=== PATIENT | male | born 1940 | race Hispanic/Latino ===

== ENCOUNTER 2017-09-16 10:10 | Emergency (ER) | payer OTHER ==
[~2017-09-16] VITALS: Ht 167.6 cm; Wt 74.8 kg
[~2017-09-16 10:10] MED LIST: ENALAPRIL PO; LISINOPRIL10 MG PO; METFORMIN PO; SIMVASTATIN PO
== END 2017-09-16 10:36 | disposition left against medical advice (07) ==
LOC: ER 10:10
DX: M79.652 Pain in left thigh (principal)

== ENCOUNTER 2018-08-20 08:08 | Emergency (ER) | payer OTHER ==
[~2018-08-20] VITALS: Ht 167.6 cm; Wt 74.8 kg
== END 2018-08-20 09:48 | disposition home or self-care (01) ==
LOC: ER 08:08
DX: L03.032 Cellulitis of left toe (principal); I10 Essential (primary) hypertension; E11.9 Type 2 diabetes mellitus without complications; E78.5 Hyperlipidemia, unspecified
CPT/HCPCS: 99283

== ENCOUNTER → 2019-03-25 | Day surgery (SDC) | payer MEDICARE ==
[2019-03-22 12:01] LABS: BASOPHILS # (AUTO) 0.1 (0.0-0.1); BASOPHILS % 0.8 % (0.0-1.0); EOSINOPHILS # (AUTO) 0.3 (0.0-0.4); EOSINOPHILS % 3.1 % (0.0-6.0); HEMATOCRIT 47.2 % (38.2-49.6); HEMOGLOBIN 15.4 g/dL (14.0-18.0); LYMPHOCYTES # (AUTO) 3.3 (1.0-3.2); MEAN CORPUSCULAR HGB CONC 32.6 g/dL (31-35); MEAN CORPUSCULAR VOLUME 95.2 fL (81-99); MONOCYTES % 10.9 % (4.4-11.3); NEUTROPHILS # (AUTO) 4.4 (2.1-6.9); NEUTROPHILS % 48.8 % (38.7-80.0); PLATELET COUNT 168 x10e3/uL (140-360); RED BLOOD COUNT 4.96 x10e6/uL (4.3-5.7); RED CELL DISTRIBUTION WIDTH 13.5 % (11.7-14.4)
[2019-03-22 12:26] LABS: ANION GAP 14.4 mmol/L (8-16); CALCIUM 9.8 mg/dL (8.4-10.2); CREATININE, SERUM 1.53 mg/dL (0.72-1.25); POTASSIUM 4.4 mmol/L (3.5-5.1)
--- NOTE | 2019-03-22 12:49 | Diagnostic Imaging Report ---
EXAMINATION: CHEST 2 VIEWS INDICATION: Pre-operative COMPARISON: None FINDINGS: LINES/TUBES:None LUNGS:The lungs are mildly hyperinflated. No focal consolidation or pulmonary edema. PLEURA:No pleural effusion or pneumothorax. MEDIASTINUM:The cardiomediastinal silhouette appears normal in size and shape. BONES/SOFT TISSUES:No acute osseous injury. ABDOMEN:No free air under the diaphragm. IMPRESSION: No focal pneumonia or pulmonary edema. Signed by: Araceli Osborne MD on 03/22/2019 12:46 PM
[~2019-03-25] MED LIST changes: +ACETAMINOPHEN 1000 MG/100 ML 100 ML IV ONE; +BACITRACIN 50,000 UNIT VIAL ONE; +BUPIVACAINE HCL 0.5% INJ 30 ML VIAL INJ ONE; +CEFAZOLIN SOD 1 GM/NS 50ML 100 ML IV ONE; +DEXAMETHASONE SOD PHOS INJ 4 MG/ML VIAL ONE; +FENTANYL CITRATE/PF 100MCG/2 ML INJ ONE; +GLYCOPYRROLATE INJ 1MG/ 5 ML SYR ONE; +LIDOCAINE HCL 2% LOCAL INJ 5 ML SDV VIAL INJ ONE; +NEOSTIGMINE 1 MG/ML 10ML VIAL ONE; +PROPOFOL IV EMULSION 10 MG/ML 20 ML VIAL ONE; +SEVOFLURANE INHAL SOLN 250 ML PEN BTL ONE
--- OUTSIDE RECORDS SUMMARY | 2019-03-25 06:47 | XMS REPORT ---
[facility] Phone Unavailable Care Team Providers Care Manager Respiratory Care Name Role Phone JENNIFER ALLISON Unavailable Unavailable Problems This patient has no known problems. Allergies, Adverse Reactions, Alerts This patient has no known allergies or adverse reactions. Medications This patient has no known medications. Results Test Description Test Time Test Comments Text Results Atomic Results Result Comments CHEST 2 VIEWS 2019-03-22 12:45:00 [facility] [address] [place] [address] Patient Name: DIANE GUDINO MR #: [id number] : 1940 Age/Sex: 79/M Req #: [id number] [facility] Physician: Ordered by: JENNIFER ALLISON DPM Report #: [id number] Location: OR Room/Bed: Procedure: [id number] DX/CHEST 2 VIEWS Exam Date: 03/22/19 Exam Time: 1215 REPORT STATUS: Signed EXAMINATION: CHEST 2 VIEWS INDICATION: Pre-operative COMPARISON: None FINDINGS: LINES/TUBES:None LUNGS:The lungs are mildly hyperinflated. No focal consolidation or pulmonary edema. PLEURA:No pleural effusion or pneumothorax. MEDIASTINUM:The cardiomediastinal silhouette appears normal in size and shape. BONES/SOFT TISSUES:No acute osseous injury. ABDOMEN:No free air under the diaphragm. IMPRESSION: No focal pneumonia or pulmonary edema. Signed by: Ranjeet Osborne MD on 03/22/2019 12:46 PM Dictated By: RANJEET OSBORNE MD [id number] Transcribed By: NASH on 03/22/19 1246 COPY TO: JENNIFER ALLISON DPM
[2019-03-25 11:05] VITALS: BP 127/81
--- NOTE | 2019-03-25 21:53 | Operative Report ---
DATE OF PROCEDURE: SURGEON: Walt Cobos DPM ROOM NUMBER: [facility]. PREOPERATIVE DIAGNOSIS: 1. 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 2. Chronic ulceration/soft tissue mass, third interspace, left foot. NAME OF OPERATIONS: 1. Arthroplasty of the 4th digit of the left foot. 2. Excision of the mass with debridement of the chronic ulceration, 3rd intermetatarsal space of the left foot. PROCEDURE IN DETAIL: The patient was taken to the operating room in a mildly sedated state, placed on the operating table in supine position. Following induction of general anesthetic, the left lower extremity was elevated to 60 degrees to exsanguinate for inflating the pneumatic ankle tourniquet to 350 mmHg to create good hemostasis. Left lower extremity was placed on the operating table prior to performing the following procedure. Procedure #1: Arthroplasty of the 4th digit of the left foot. A linear longitudinal incision was made overlying the dorsal aspect of the proximal interphalangeal joint of the left foot. Incision was deepened via sharp and blunt dissection and head of the proximal phalanx having the surgical site remodeled. Utilizing an oscillating saw, the area was irrigated with copious amounts of sterile saline solution. Deep closure was 3-0 Vicryl. Skin closure was 4-0 nylon. The interdigital lesion was then evaluated in the 3rd intermetatarsal space. This was noted to be full thickness through skin and subcutaneous tissue, primarily located along the medial aspect of the 4th digit, but extending also onto the lateral aspect of the 3rd digit. Utilizing sharp debridement, the entirety of the lesion was resected, this left a full-thickness void. The area was irrigated with copious amounts of sterile saline solution. An application of human tissue allograft was applied to the wound for wound closure. That area was then dressed with appropriate mildly compressive dressings. The release of pneumatic thigh tourniquet showed a normal hyperemic flush to all digits of left foot. The patient left the operating room with vital signs stable in apparent satisfactory condition. The excision of the lesion and the arthroplasty were performed separately through separate incisions and the application of grafting product overlying the 3rd intermetatarsal space was done utilizing standard technique for wound closure. This having been accomplished and the appropriate mildly compressive dressings were applied. The patient left the operating room and will return to see me within 1 week postoperatively. GUIDO Anderson /[id number]
== END | disposition home or self-care (01) ==
LOC: OR 06:44
PROVIDERS: ATTEND Podiatrist Foot Surgery
DX: M20.42 Other hammer toe(s) (acquired), left foot (principal); L89.891 Pressure ulcer of other site, stage 1; M79.672 Pain in left foot; Z01.810 Encounter for preprocedural cardiovascular examination; Z01.812 Encounter for preprocedural laboratory examination; Z01.811 Encounter for preprocedural respiratory examination; E11.9 Type 2 diabetes mellitus without complications; I10 Essential (primary) hypertension; B07.8 Other viral warts; Z79.84 Long term (current) use of oral hypoglycemic drugs
CPT/HCPCS: 11422; 28285; 36415 ×2; 71046; 76000; 80048; 82948; 85025; 88305; 93005; J0131; J0690; J1100; J2001; J2704; J2710; J3010; J3490; Q4100; 88304

== ENCOUNTER → 2020-05-17 | Outpatient (CLI) | payer OTHER ==
[~2020-05-17] MED LIST changes: -ACETAMINOPHEN 1000 MG/100 ML 100 ML IV ONE; -BACITRACIN 50,000 UNIT VIAL ONE; -BUPIVACAINE HCL 0.5% INJ 30 ML VIAL INJ ONE; -CEFAZOLIN SOD 1 GM/NS 50ML 100 ML IV ONE; +COVID-19 VACC, MRNA(MODERNA)/PF 100 MCG/0.5 ML VIAL IM ONE; -DEXAMETHASONE SOD PHOS INJ 4 MG/ML VIAL ONE; -FENTANYL CITRATE/PF 100MCG/2 ML INJ ONE; -GLYCOPYRROLATE INJ 1MG/ 5 ML SYR ONE; -LIDOCAINE HCL 2% LOCAL INJ 5 ML SDV VIAL INJ ONE; -NEOSTIGMINE 1 MG/ML 10ML VIAL ONE; -PROPOFOL IV EMULSION 10 MG/ML 20 ML VIAL ONE; -SEVOFLURANE INHAL SOLN 250 ML PEN BTL ONE
== END ==
LOC: VACCPMC 06:30
DX: Z23 Encounter for immunization (principal); Z20.828 Contact with and (suspected) exposure to other viral communicable diseases

== ENCOUNTER → 2020-06-22 | Outpatient (CLI) | payer OTHER | END | DRG 951 | LOC: VACCPMC 11:01 | DX: Z23 Encounter for immunization (principal); Z20.822 Contact with and (suspected) exposure to COVID-19 | CPT/HCPCS: 0012A; 91301 ==

== ENCOUNTER → 2021-01-16 | Day surgery (SDC) | payer MEDICARE ==
[2021-01-14 10:51] LABS: BASOPHILS # (AUTO) 0.1 (0.0-0.1); EOSINOPHILS # (AUTO) 0.2 (0.0-0.4); EOSINOPHILS % 2.3 % (0.0-6.0); HEMATOCRIT 45.1 % (38.2-49.6); HEMOGLOBIN 14.3 g/dL (14.0-18.0); LYMPHOCYTES % 23.7 % (18.0-39.1); MEAN CORPUSCULAR HEMOGLOBIN 30.5 pg (28-32); MEAN CORPUSCULAR HGB CONC 31.7 g/dL (31-35); MEAN CORPUSCULAR VOLUME 96.2 fL (81-99); MONOCYTES # (AUTO) 0.6 (0.2-0.8); MONOCYTES % 7.6 % (4.4-11.3); NEUTROPHILS # (AUTO) 5.4 (2.1-6.9); NEUTROPHILS % 64.9 % (38.7-80.0); PLATELET COUNT 184 x10e3/uL (140-360); RED BLOOD COUNT 4.69 x10e6/uL (4.3-5.7); RED CELL DISTRIBUTION WIDTH 14.3 % (11.7-14.4)
[2021-01-14 11:03] LABS: INR 0.94; PARTIAL THROMBOPLASTIN TIME 28.5 seconds (23.8-35.5); PROTHROMBIN TIME 12.8 seconds (11.9-14.5)
[2021-01-14 11:56] LABS: ALBUMIN 3.9 g/dL (3.5-5.0); ALBUMIN/GLOBULIN RATIO 1.1 (0.8-2.0); ANION GAP 14.9 mmol/L (8-16); CALCIUM 9.7 mg/dL (8.4-10.2); CREATININE, SERUM 1.32 mg/dL (0.72-1.25); POTASSIUM 4.9 mmol/L (3.5-5.1)
[~2021-01-16] VITALS: Ht 170.2 cm; Wt 68.0 kg
[2021-01-16] VITALS (7 sets, daily range): BP systolic 119–165; BP diastolic 62–76
[~2021-01-16] MED LIST changes: +AMLODIPINE BESYL5 MG PO; +ATORVASTATIN CA20 MG PO; -COVID-19 VACC, MRNA(MODERNA)/PF 100 MCG/0.5 ML VIAL IM ONE; +FENTANYL CITRATE/PF 100MCG/2 ML INJ ONE; +HEPARIN SOD/SOD CHLORIDE 2,000 ML ONE; +IOPAMIDOL 370 MG/ML 200 ML INFUS..BTL INJ ONE; +LIDOCAINE HCL 2% LOCAL 20 ML VIAL ONE; +MIDAZOLAM HCL 2 MG/2 ML VIAL ONE; +SODIUM CHLORIDE 0.9% 1000ML 1,000 ML ONE
== END | disposition home or self-care (01) ==
LOC: CATH LAB 07:53
PROVIDERS: ATTEND Internal Medicine Cardiovascular Disease
DX: I25.10 Atherosclerotic heart disease of native coronary artery without angina pectoris (principal); R94.39 Abnormal result of other cardiovascular function study; R94.31 Abnormal electrocardiogram [ECG] [EKG]; I10 Essential (primary) hypertension; I49.3 Ventricular premature depolarization; E78.5 Hyperlipidemia, unspecified; E11.9 Type 2 diabetes mellitus without complications; Z01.812 Encounter for preprocedural laboratory examination; Z20.822 Contact with and (suspected) exposure to COVID-19; Z79.82 Long term (current) use of aspirin; Z79.84 Long term (current) use of oral hypoglycemic drugs; Z82.49 Family history of ischemic heart disease and other diseases of the circulatory system
CPT/HCPCS: 36415; 76937; 80053; 80061; 85025; 85610; 85730; 93458; C1887; J2001; J2250; J3010; J7030; Q9967; U0002; 99152

== ENCOUNTER 2022-09-20 16:06 | Inpatient (IN) | payer MEDICARE ==
[~2022-09-20] VITALS: Ht 170.2 cm; Wt 68.0 kg
[~2022-09-20 16:06] MED LIST changes: -FENTANYL CITRATE/PF 100MCG/2 ML INJ ONE; -HEPARIN SOD/SOD CHLORIDE 2,000 ML ONE; -IOPAMIDOL 370 MG/ML 200 ML INFUS..BTL INJ ONE; -LIDOCAINE HCL 2% LOCAL 20 ML VIAL ONE; -MIDAZOLAM HCL 2 MG/2 ML VIAL ONE; -SODIUM CHLORIDE 0.9% 1000ML 1,000 ML ONE
[2022-09-20] MEDS ORDERED: CLINDAMYCIN 600MG / 50ML 50 ML IV STA (16:28)
[2022-09-20 16:42] LABS: BASOPHILS # (AUTO) 0.1 (0.0-0.1); BASOPHILS % 0.4 % (0.0-1.0); EOSINOPHILS % 0.2 % (0.0-6.0); HEMATOCRIT 45.6 % (38.2-49.6); HEMOGLOBIN 15.1 g/dL (14.0-18.0); LYMPHOCYTES # (AUTO) 1.9 (1.0-3.2); LYMPHOCYTES % 12.7 % (18.0-39.1); MEAN CORPUSCULAR HEMOGLOBIN 30.6 pg (28-32); MEAN CORPUSCULAR HGB CONC 33.1 g/dL (31-35); MEAN CORPUSCULAR VOLUME 92.3 fL (81-99); MONOCYTES # (AUTO) 2.6 (0.2-0.8); MONOCYTES % 17.5 % (4.4-11.3); NEUTROPHILS # (AUTO) 10.3 (2.1-6.9); NEUTROPHILS % 68.7 % (38.7-80.0); PLATELET COUNT 180 x10e3/uL (140-360); RED BLOOD COUNT 4.94 x10e6/uL (4.3-5.7); RED CELL DISTRIBUTION WIDTH 14.5 % (11.7-14.4)
[2022-09-20 16:50] LABS: INR 1.08; PARTIAL THROMBOPLASTIN TIME 31.6 seconds (23.8-35.5); PROTHROMBIN TIME 14.5 seconds (11.9-14.5)
[2022-09-20 16:59] LABS: ALBUMIN 3.6 g/dL (3.5-5.0); ALBUMIN/GLOBULIN RATIO 0.9 (0.8-2.0); ANION GAP 16.1 mmol/L (8-16); CALCIUM 9.5 mg/dL (8.4-10.2); CREATININE, SERUM 1.44 mg/dL (0.72-1.25); POTASSIUM 4.1 mmol/L (3.5-5.1)
[2022-09-20] MEDS ORDERED: Vancomycin IV 1 GM in SODIUM CHLORIDE 0.9% 250ML 250 ML IV STA (17:54)
[2022-09-20] MEDS ORDERED: SODIUM CHLORIDE FLUSH 10 ML SYR INJ PRN (18:00)
[2022-09-20] MEDS ORDERED: ONDANSETRON HCL INJ 2MG/ML 2ML 2 MG/ML VIAL IV PRN (18:00)
[2022-09-20 20:00] VITALS: BP_SYST 122; BP_DIAS 65; BP_DIAS 68; PULSE 70; RESP 19; TEMP 98.2; O2SAT 100; O2SAT 97
[2022-09-20] MEDS ORDERED: DEXTROSE 50% SYRINGE 50 ML IV PRN (20:45)
[2022-09-20] MEDS ORDERED: HYDRALAZINE HCL 20 MG/ML VIAL IV PRN (20:45)
[2022-09-20] MEDS ORDERED: DOCUSATE SODIUM 100 MG CAP PO PRN (20:45)
[2022-09-20] MEDS ORDERED: GUAIFENESIN/DEXTROMETHORPHAN LIQD 5 ML UDC PO PRN (20:45)
[2022-09-20] MEDS ORDERED: ACETAMINOPHEN 325 MG TAB PO PRN (20:45)
[2022-09-20] MEDS ORDERED: MAGNESIUM/ALUMINUM/SIMETHICONE 30 ML UDC PO PRN (20:45)
[2022-09-20] MEDS: ATORVASTATIN 20 MG TAB PO SCH (22:38)
[2022-09-20] MEDS: INSULIN REGULAR, HUMAN 100 UNIT/1 ML SQ SCH (22:42)
[2022-09-21] VITALS (8 sets, daily range): BP systolic 107–131; BP diastolic 46–71; PULSE 66–70; RESP 17–21; TEMP 97.8–99.4; O2SAT 99–100
[2022-09-21] MEDS ORDERED: SODIUM CHLORIDE 0.9% 250ML 250 ML ONE (00:47)
[2022-09-21] MEDS ORDERED: QUETIAPINE FUMA25 MG PO (01:07)
[2022-09-21] MEDS ORDERED: NAMENDA10 MG PO (01:08)
[2022-09-21 06:15] LABS: BASOPHILS # (AUTO) 0.1 (0.0-0.1); BASOPHILS % 0.4 % (0.0-1.0); EOSINOPHILS # (AUTO) 0.1 (0.0-0.4); EOSINOPHILS % 0.4 % (0.0-6.0); HEMATOCRIT 40.5 % (38.2-49.6); LYMPHOCYTES # (AUTO) 2.7 (1.0-3.2); LYMPHOCYTES % 23.5 % (18.0-39.1); MEAN CORPUSCULAR HEMOGLOBIN 30.2 pg (28-32); MEAN CORPUSCULAR HGB CONC 32.1 g/dL (31-35); MEAN CORPUSCULAR VOLUME 94.2 fL (81-99); MONOCYTES # (AUTO) 1.6 (0.2-0.8); MONOCYTES % 13.7 % (4.4-11.3); NEUTROPHILS % 61.6 % (38.7-80.0); PLATELET COUNT 166 x10e3/uL (140-360); RED CELL DISTRIBUTION WIDTH 14.6 % (11.7-14.4)
[2022-09-21 06:38] LABS: ALBUMIN/GLOBULIN RATIO 0.9 (0.8-2.0); ANION GAP 12.9 mmol/L (8-16); CALCIUM 9.1 mg/dL (8.4-10.2); CREATININE, SERUM 1.55 mg/dL (0.72-1.25); POTASSIUM 3.9 mmol/L (3.5-5.1)
[2022-09-21 06:58] LABS: THYROID STIMULATING HORMONE 3.203 uIU/mL (0.350-4.940)
[2022-09-21] MEDS: INSULIN REGULAR, HUMAN 100 UNIT/1 ML SQ SCH ×4 (07:30→21:00)
[2022-09-21] MEDS: MULTIVITAMINS/MINERALS TAB PO SCH (09:00)
[2022-09-21] MEDS: AMLODIPINE BESYLATE 5 MG TAB PO SCH (09:00)
[2022-09-21] MEDS: ENOXAPARIN SOD INJ 40 MG/0.4 ML SYR SC SCH (16:48)
[2022-09-21] MEDS ORDERED: Vancomycin IV 1 GM in SODIUM CHLORIDE 0.9% 250ML 250 ML IV SCH (17:00)
[2022-09-21] MEDS ORDERED: VANCOMYCIN 1.25GM/250ML PREMIX 250 ML IV SCH (17:00)
[2022-09-21] MEDS ORDERED: LEVALBUTEROL HCL SOLN NEBU 0.63 MG/3 ML NEB INH SCH (19:00)
[2022-09-21] MEDS: ATORVASTATIN 20 MG TAB PO SCH (22:03)
[2022-09-21] MEDS: MELATONIN 3 MG TAB PO PRN (22:14)
[2022-09-21] MEDS: Morphine 2mg Syringe 2 MG/ML SYR IV PRN (23:52)
[2022-09-22] VITALS (8 sets, daily range): BP systolic 108–150; BP diastolic 65–80; PULSE 58–91; RESP 16–18; TEMP 97.7–98.6; O2SAT 97–100
[2022-09-22 05:41] LABS: BASOPHILS # (AUTO) 0.1 (0.0-0.1); BASOPHILS % 0.6 % (0.0-1.0); EOSINOPHILS # (AUTO) 0.1 (0.0-0.4); EOSINOPHILS % 1.5 % (0.0-6.0); HEMATOCRIT 38.5 % (38.2-49.6); HEMOGLOBIN 12.7 g/dL (14.0-18.0); LYMPHOCYTES # (AUTO) 2.3 (1.0-3.2); LYMPHOCYTES % 27.6 % (18.0-39.1); MEAN CORPUSCULAR HEMOGLOBIN 30.8 pg (28-32); MEAN CORPUSCULAR VOLUME 93.4 fL (81-99); MONOCYTES % 12.2 % (4.4-11.3); NEUTROPHILS # (AUTO) 4.8 (2.1-6.9); NEUTROPHILS % 57.4 % (38.7-80.0); PLATELET COUNT 155 x10e3/uL (140-360); RED BLOOD COUNT 4.12 x10e6/uL (4.3-5.7)
[2022-09-22 06:07] LABS: CALCIUM 8.7 mg/dL (8.4-10.2); CREATININE, SERUM 1.73 mg/dL (0.72-1.25)
[2022-09-22] MEDS: INSULIN REGULAR, HUMAN 100 UNIT/1 ML SQ SCH ×4 (07:30→21:00)
[2022-09-22] MEDS: AMLODIPINE BESYLATE 5 MG TAB PO SCH (09:37)
[2022-09-22] MEDS: MULTIVITAMINS/MINERALS TAB PO SCH (09:37)
[2022-09-22] MEDS: Morphine 2mg Syringe 2 MG/ML SYR IV PRN ×2 (09:45→22:21)
[2022-09-22] MEDS ORDERED: ONDANSETRON HCL 4 MG ORAL DISINTEGRATING TAB PO PRN (13:00)
[2022-09-22] MEDS: LACTATED RINGER'S 1,000 ML INJ SCH (13:09)
[2022-09-22] MEDS: ENOXAPARIN SOD INJ 40 MG/0.4 ML SYR SC SCH (17:42)
[2022-09-22] MEDS: ATORVASTATIN 20 MG TAB PO SCH (21:57)
[2022-09-22] MEDS: METHYLPREDNISOLONE SOD SUCC 40 MG/ML VIAL 1ML IV SCH (21:57)
[2022-09-22] MEDS: MELATONIN 3 MG TAB PO PRN (22:21)
[2022-09-23] VITALS (7 sets, daily range): BP systolic 136–175; BP diastolic 59–79; PULSE 65–71; RESP 16–18; TEMP 97.3–98.5; O2SAT 97–100
[2022-09-23] MEDS: LACTATED RINGER'S 1,000 ML INJ SCH ×2 (04:52→14:40)
[2022-09-23 04:58] LABS: HEMATOCRIT 41.1 % (38.2-49.6); HEMOGLOBIN 13.3 g/dL (14.0-18.0); MEAN CORPUSCULAR HEMOGLOBIN 30.5 pg (28-32); MEAN CORPUSCULAR HGB CONC 32.4 g/dL (31-35); MEAN CORPUSCULAR VOLUME 94.3 fL (81-99); PLATELET COUNT 188 x10e3/uL (140-360); RED BLOOD COUNT 4.36 x10e6/uL (4.3-5.7); RED CELL DISTRIBUTION WIDTH 14.6 % (11.7-14.4)
[2022-09-23 05:35] LABS: ANION GAP 15.5 mmol/L (8-16); CALCIUM 8.9 mg/dL (8.4-10.2); CREATININE, SERUM 1.78 mg/dL (0.72-1.25); POTASSIUM 4.5 mmol/L (3.5-5.1)
[2022-09-23] MEDS: INSULIN REGULAR, HUMAN 100 UNIT/1 ML SQ SCH ×4 (07:30→21:32)
[2022-09-23] MEDS: MULTIVITAMINS/MINERALS TAB PO SCH (08:55)
[2022-09-23] MEDS: CEFTRIAXONE 2 GM in SODIUM CHLORIDE 0.9% 100 ML IV SCH (08:56)
[2022-09-23] MEDS: AMLODIPINE BESYLATE 5 MG TAB PO SCH (08:56)
[2022-09-23] MEDS: METHYLPREDNISOLONE SOD SUCC 40 MG/ML VIAL 1ML IV SCH ×2 (09:06→21:28)
[2022-09-23 09:34] LABS: LYMPHOCYTES % (MANUAL) 6 % (19-48); MONOCYTES % (MANUAL) 2 % (3.4-9.0); NEUTROPHILS % (MANUAL) 92 % (40-74)
[2022-09-23 09:35] LABS: PLATELET ESTIMATE ADEQUATE; PLATELET MORPHOLOGY COMMENT NORMAL; RBC MORPHOLOGY COMMENT NORMAL
[2022-09-23] MEDS: ENOXAPARIN SOD INJ 40 MG/0.4 ML SYR SC SCH (17:51)
[2022-09-23] MEDS: ATORVASTATIN 20 MG TAB PO SCH (21:25)
[2022-09-23] MEDS: MELATONIN 3 MG TAB PO PRN (21:35)
[2022-09-24 00:10] VITALS: BP 155/76; PULSE 64; RESP 18; TEMP 97.5; O2SAT 100
[2022-09-24 04:00] VITALS: BP 145/66; PULSE 76; RESP 17; TEMP 97.7; O2SAT 100
[2022-09-24 05:16] LABS: ANION GAP 13.1 mmol/L (8-16); CALCIUM 8.9 mg/dL (8.4-10.2); CREATININE, SERUM 1.34 mg/dL (0.72-1.25); POTASSIUM 4.1 mmol/L (3.5-5.1)
[2022-09-24] MEDS: LACTATED RINGER'S 1,000 ML INJ SCH (05:53)
[2022-09-24 08:21] VITALS: BP 146/97; PULSE 63; RESP 19; TEMP 97.6; O2SAT 100
[2022-09-24] MEDS: CEFTRIAXONE 2 GM in SODIUM CHLORIDE 0.9% 100 ML IV SCH (08:42)
[2022-09-24] MEDS: MULTIVITAMINS/MINERALS TAB PO SCH (08:42)
[2022-09-24] MEDS: AMLODIPINE BESYLATE 5 MG TAB PO SCH (08:43)
[2022-09-24 08:50] VITALS: BP 146/97; PULSE 63; RESP 19; TEMP 97.6; O2SAT 100
[2022-09-24] MEDS: METHYLPREDNISOLONE SOD SUCC 40 MG/ML VIAL 1ML IV SCH (09:00)
[2022-09-24] MEDS: INSULIN REGULAR, HUMAN 100 UNIT/1 ML SQ SCH (09:01)
[2022-09-24] MEDS ORDERED: DOXYCYCLINE MO100 MG PO (10:44)
[2022-09-24] MEDS ORDERED: LEVOFLOXACIN500 MG PO (10:44)
== END 2022-09-24 13:13 | disposition home or self-care (01) | DRG 603 ==
LOC: ER 16:20 → ERHOLD 17:54 → MED/SURG2 21:40 → OBSVTOIN 09-22 15:52
PROVIDERS: ADMIT Internal Medicine Critical Care Medicine; ATTEND Internal Medicine Critical Care Medicine
DX: L03.115 Cellulitis of right lower limb (principal); N17.9 Acute kidney failure, unspecified; E11.628 Type 2 diabetes mellitus with other skin complications; E78.5 Hyperlipidemia, unspecified; F17.210 Nicotine dependence, cigarettes, uncomplicated; E11.40 Type 2 diabetes mellitus with diabetic neuropathy, unspecified; M10.9 Gout, unspecified; M19.90 Unspecified osteoarthritis, unspecified site; S93.491A Sprain of other ligament of right ankle, initial encounter; M65.861 Other synovitis and tenosynovitis, right lower leg; E11.22 Type 2 diabetes mellitus with diabetic chronic kidney disease; I12.9 Hypertensive chronic kidney disease with stage 1 through stage 4 chronic kidney disease, or unspecified chronic kidney disease; N18.30 Chronic kidney disease, stage 3 unspecified; E11.51 Type 2 diabetes mellitus with diabetic peripheral angiopathy without gangrene; Z79.84 Long term (current) use of oral hypoglycemic drugs; Z92.3 Personal history of irradiation
CPT/HCPCS: 36415; 80048; 80053; 82550; 82948; 83036; 83605; 84443; 84550; 85007; 85025; 85027; 85610; 85730; 87040; 93005; 93926; 96361; 96372; 99284; G0378; J0696; J1650; J2270; J2543; J2920; J7050